=== PATIENT | male | born 1960 | race Two or more races ===

== ENCOUNTER 2021-08-28 11:22 | Emergency (ER) | payer OTHER ==
[2021-08-28 12:50] LABS: #Basophils 0.1 10x3/uL (0.0-0.2); #Eosinphils 0.6 10x3/uL (0.0-0.5); #Neutrophils 6.6 10x3/uL (1.5-8.4); %Basophils 0.9 % (0.0-2.0); %Eosinophils 4.9 % (0.0-6.0); %Lymphocytes 27.3 % (18.0-47.0); %Monocytes 8.8 % (0.0-10.0); %Neutrophils 57.7 % (40.0-75.0); Hemoglobin 14.8 g/dL (13.5-17.5); Mean Corpuscular HGB CONC 34.5 g/dL (32.0-36.0); Mean Corpuscular Hemoglobin 29.7 pg (27.0-33.0); Mean Corpuscular Volume 86.1 fl (81.2-95.1); Mean Platelet Volume 10.6 fl (7.4-10.4); Platelet Count 227 10x3/uL (150-450); RBC Distribution Width 12.7 % (11.5-14.5); Red Blood Cell (RBC) Count 4.98 10x6/uL (4.32-5.72); White Blood Cell (WBC) Count 11.4 10x3/uL (3.5-10.5)
== END 2021-08-28 13:31 | disposition home or self-care (01) ==
LOC: CSHERS 11:22
DX: M70.42 Prepatellar bursitis, left knee (principal); E78.5 Hyperlipidemia, unspecified; Z79.899 Other long term (current) drug therapy
CPT/HCPCS: 36415; 85025